=== PATIENT | male | born 1955 | race Caucasian/White ===

== ENCOUNTER 2020-07-18 06:00 | Outpatient (REF) | payer BC, SELFPAY ==
[2020-07-18 11:26] LABS: MANUAL DIFF FLAG NO
[2020-07-18 11:43] LABS: Basophils Absolute Auto 0.1 X10*3/uL (0.0-0.2); Basophils Percent Auto 1.3 % (0-2); Eosinophils Absolute Auto 0.4 X10*3/uL (0.0-0.4); Eosinophils Percent Auto 6.9 % (0-4); Hematocrit 42.5 % (42-52); Hemoglobin 13.7 g/dl (14.0-18.0); Imm Gran Abs Auto 0.03 X10*3/uL (0.00-0.03); Imm Gran Pct Auto 0.5 % (0.0-0.4); Lymphocytes Absolute Auto 1.3 X10*3/uL (1.2-4.9); Lymphocytes Percent Auto 24.1 % (20-40); Mean Corpuscular HGB Conc 32.2 g/dl (31.0-36.0); Mean Corpuscular Volume 93.2 fL (80-98); Mean Platelet Volume 10.4 fL (9.4-12.4); Monocytes Absolute Auto 0.7 X10*3/uL (0.1-1.2); Monocytes Percent Auto 11.9 % (2-11); Neutrophils Percent Auto 55.3 % (45-73); Platelet Count 204 X10*3/uL (160-400); Red Blood Count 4.56 X10*6/uL (4.60-5.80); Red Cell Distribution Width 13.1 % (11.0-16.0); White Blood Count 5.5 X10*3/uL (4.8-10.8)
[2020-07-18 12:10] LABS: Alanine Aminotransferase 18 U/L (0-40); Albumin Level 4.1 g/dL (3.5-5.0); Alkaline Phosphatase 58 U/L (39-117); Anion Gap 11 (12-20); Aspartate Amino Transferase 19 U/L (5-37); Bilirubin Total 0.8 mg/dL (0.0-1.0); Blood Urea Nitrogen 19 mg/dL (9-16); Calcium 8.9 mg/dL (8.4-10.2); Carbon Dioxide 29 mmol/L (22-29); Chloride 105 mmol/L (96-108); Cholesterol 208 mg/dL; Estimated Glomerular Filt Rate > 60; Glucose Random 96 mg/dL (60-115); HDL Cholesterol 57 mg/dL; LDL Cholesterol Calculated 136 mg/dl; Sodium 141 mmol/L (135-145); Total Protein 6.4 g/dL (6.5-8.0); Triglycerides 77 mg/dL
[2020-07-18 12:18] LABS: Free T4 (Free Thyroxine) 0.92 ng/dL (0.71-1.85); Prostate Specific Antigen Scr 0.68 ng/mL (<0.05-4.0); Thyroid Stimulating Hormone 3.09 uIU/mL (0.32-4.0)
[2020-07-18 12:31] LABS: Folate 18.1 ng/mL (> or = 4.0); Vitamin B12 509 pg/mL (200-900)
== END 2020-07-18 06:01 | disposition home or self-care (01) ==
LOC: HO.HMGCLDS 06:00
PROVIDERS: PCP Internal Medicine; Visit Provider Internal Medicine
DX: Z12.5 Encounter for screening for malignant neoplasm of prostate (principal); E78.00 Pure hypercholesterolemia, unspecified
CPT/HCPCS: 36415; 80053; 80061; 82607; 82746; 84153; 84439; 84443; 85025

== ENCOUNTER → 2022-03-26 14:19 | Outpatient (BNVA) | payer BC, SELFPAY | PROVIDERS: PCP Internal Medicine; Visit Provider Nurse Practitioner Family | DX: Z01.818 Encounter for other preprocedural examination (principal) ==

== ENCOUNTER 2022-04-30 08:49 | Outpatient (REF) | payer BC, SELFPAY ==
[2022-04-30 10:58] LABS: MANUAL DIFF FLAG NO
[2022-04-30 11:07] LABS: Basophils Absolute Auto 0.1 X10*3/uL (0.0-0.2); Basophils Percent Auto 0.9 % (0-2); Eosinophils Absolute Auto 0.4 X10*3/uL (0.0-0.4); Eosinophils Percent Auto 4.6 % (0-4); Hematocrit 43.9 % (42.0-52.0); Hemoglobin 14.5 g/dl (14.0-18.0); Imm Gran Abs Auto 0.09 X10*3/uL (0.00-0.03); Imm Gran Pct Auto 1.2 % (0.0-0.4); Lymphocytes Absolute Auto 1.7 X10*3/uL (1.2-4.9); Lymphocytes Percent Auto 22.5 % (20-40); Mean Corpuscular Hemoglobin 30.6 pg (27.0-33.0); Mean Corpuscular Volume 92.6 fL (80.0-98.0); Mean Platelet Volume 9.9 fL (9.4-12.4); Monocytes Absolute Auto 0.8 X10*3/uL (0.1-1.2); Monocytes Percent Auto 10.6 % (2-11); Neutrophils Absolute Auto 4.6 x10*3/uL (2.0-8.3); Neutrophils Percent Auto 60.2 % (45-73); Platelet Count 227 X10*3/uL (160-400); Red Blood Count 4.74 X10*6/uL (4.60-5.80); Red Cell Distribution Width 12.9 % (11.0-16.0); Retic HGB Equivalent 36.4 pg (30.0-35.0); Reticulocyte Percent 0.8 % (0.5-1.8); Reticulocytes Absolute 0.037 X10*6/uL (0.026-0.095); White Blood Count 7.6 X10*3/uL (4.8-10.8)
[2022-04-30 11:31] LABS: Alanine Aminotransferase 28 U/L (0-40); Alkaline Phosphatase 46 U/L (39-117); Anion Gap 13 (12-20); Aspartate Amino Transferase 23 U/L (5-37); Bilirubin Total 0.9 mg/dL (0.0-1.0); Blood Urea Nitrogen 19 mg/dL (9-16); Calcium 9.1 mg/dL (8.4-10.2); Carbon Dioxide 24 mmol/L (22-29); Chloride 107 mmol/L (96-108); Cholesterol 254 mg/dL; Estimated Glomerular Filt Rate > 60; Glucose Random 93 mg/dL (60-115); HDL Cholesterol 63 mg/dL; Iron 111 mcg/dL (45-160); LDL Cholesterol Calculated 175 mg/dl; Percent Iron Saturation 41 % (15-50); Potassium 4.2 mmol/L (3.3-5.1); Sodium 140 mmol/L (135-145); Total Iron Binding Capacity 269 mcg/dL (228-428); Total Protein 6.5 g/dL (6.5-8.0); Triglycerides 82 mg/dL; Unsaturated Iron Binding 158 ug/dL
[2022-04-30 11:49] LABS: Ferritin 500 ng/mL (20-250); Folate 14.7 ng/mL (> or = 4.0); Free T4 (Free Thyroxine) 0.97 ng/dL (0.71-1.85); Prostate Specific Antigen Scr 1.06 ng/mL (<0.05-4.0); Thyroid Stimulating Hormone 2.55 uIU/mL (0.32-4.0); Vitamin B12 2000 pg/mL (200-900)
== END 2022-04-30 08:50 | disposition home or self-care (01) ==
LOC: HO.HMGCLDS 08:49
PROVIDERS: PCP Internal Medicine; Visit Provider Internal Medicine
DX: Z12.5 Encounter for screening for malignant neoplasm of prostate (principal); E78.00 Pure hypercholesterolemia, unspecified
CPT/HCPCS: 36415; 80053; 80061; 82607; 82728; 82746; 83540; 84153; 84439; 84443; 85025; 85045

== ENCOUNTER 2023-01-07 09:24 | Day surgery (SDC) | payer BC, SELFPAY ==
[2023-01-03 12:16] VITALS: BMI 30.2
--- NOTE | 2023-01-07 10:45 | MHC.SHP ---
Pre-Procedural Eval Section A Date of Service: 01/07/23 The patient is an INPATIENT: No The History & Physical has been completed within 30 days and I have reviewed it.: No Section B Chief Complaint: colon cancer screening Relevant Family History (Specify if Yes): No Relevant Social History: None Present Medications: see Short Stay Collaborative assessment Medical History: Significant History (Hypercholesterolemia Uveitis) History of Previous Operations: Relevant previous surgery/procedure and date(s) (History of appendectomy History of cataract surgery History of eye surgery) Allergies: Allergies Allergy/AdvReac Type Severity Reaction Status Date / Time watermelon Allergy Severe ANAPHYLAXIS Verified 04/30/22 13:39 bee pollen [BEE STINGS] Allergy Unknown ANAPHYLAXIS Verified 04/30/22 13:39 Review of Systems Sugical H&P ROS: Negative: Constitution, Cardiovascular, Respiratory and Gastrointestinal Exam Surgical H&P Exam: Normal: Heart, Normal: Lungs, Normal: Extremities and Normal: Abdomen Plan Diagnosis/Plan: Unchanged I have reviewed the history and physical and performed a pertinent physical examination on my patient. No changes have occurred unless specified. Time Spent With Patient Time: Total time managing care of this patient today ____ minutes.
--- NOTE | 2023-01-07 11:25 | P.CONAN_ITS ---
HPI - Anesthesia Eval Consult details Narrative: for screening [facility] Active Problems Active Problems: All Active Problems (Updated 04/30/22 @ 14:03 by Prieto Manning MD) Annual physical exam (Acute) Eczema (Acute) Colon cancer screening (Acute) Obesity (BMI 30.0-34.9) (Acute) Maxillary sinusitis (Acute) Anemia (Acute) Overweight (BMI 25.0-29.9) (Acute) Uveitis (Acute) Hypercholesterolemia (Acute) Past Medical History Medical History Uveitis Hypercholesterolemia Family History Family History Father No problems noted. Mother No problems noted. Brother Prostate cancer Family history of problems with anesthesia: No Surgical History Surgical History History of eye surgery History of cataract surgery History of appendectomy History of Problems with Anesthesia: No Social History Social History Housing: House Alcohol intake: current Alcohol intake frequency: a few times a month Patient Tobacco Use Status: Never used Tobacco e-Cigarette/Vaping Use: Never Used Second Hand Smoke Exposure: No Advance Directives: No Advance Directives Information Provided: Yes Current occupational status: retired Cognitive needs: No Hearing needs: No Vision needs: Yes Meds Allergies Allergy/AdvReac Type Severity Reaction Status Date / Time watermelon Allergy Severe ANAPHYLAXIS Verified 04/30/22 13:39 bee pollen [BEE STINGS] Allergy Unknown ANAPHYLAXIS Verified 04/30/22 13:39 Home Medications Medication Instructions Recorded Confirmed Last Taken Type docusate sodium 100 mg capsule 100 mg PO DAILY 07/18/20 01/03/23 Unknown History dorzolamide 22.3 mg-timolol 6.8 1 drp ophthalmic (eye) BID 07/18/20 01/03/23 Unknown History mg/mL eye drops qyfbysfn-gp-rqvtd 300 mcg-K 60 1 tab PO DAILY 07/18/20 01/03/23 Unknown History mcg-lycop 600 mcg-lutein 300 mcg tablet (Centrum Silver Men) prednisolone acetate 1 % eye 1 drp ophthalmic (eye) BID 07/18/20 01/03/23 Unk nown History drops,suspension timolol maleate 0.5 % eye drops 1 drp ophthalmic (eye) DAILY 07/18/20 01/03/23 Unknown History vit C,E,zinc,copper-egdar4u 250 1 cap PO DAILY 07/18/20 01/03/23 Unknown History mg-lutein 5 mg-zeaxanthin 1 mg capsule (Ocuvite Adult 50 Plus) Exam Exam Date and Time: January 07, 2023 1125 Height,Weight and Vital Signs: Height 5 ft 6 in Weight 84.822 kg Airway Mallampati Class: II TM Dist: >3cm Neck ROM: Full Heart: rrr Lungs: cta Assessment and Plan Assessment Anesthesia Assessment: Anesthesia Plan Discussed and Chart Reviewed Final Anesthetic Review Family History of Problems with Anesthesia: No History of Problems with Anesthesia: No NPO: Yes ASA Class: II Final Preanesthetic Review: No Changes in Pt Med Stat, Meds/Allgs Chart Reviewed, Consent Obtained/Reviewed and Anes Risks/Benef Reviewed Patient Risk: Low Procedure Risk: Low Anesthetic Plan Anesthetic Plan: MAC: Disposition: Standard PACU
[2023-01-07 11:26] VITALS: BP 138/84; PULSE 55; RESP 18; TEMP 36.2; O2SAT 98
[2023-01-07] MEDS: Lactated Ringers 1,000 ML 100 ML IVCONT (11:31)
--- NOTE | 2023-01-07 11:33 | W.PM.OPN ---
Operative Note Operative Note Date of Service: 01/07/23 Narrative: COLONOSCOPY TILL CECUM WITH SNARE POLYPECTOMY, SUBMUCOSAL INJECTION AND HEMOCLIP PLACEMENT Pre-op diagnosis: Colon cancer screening Post-op diagnosis:?Colon polyps, diverticulosis, hemorrhoids Endoscopist:? Aylin Villanueva MD Anesthesia:?MAC Consent: Indications for the procedure and potential complications of bleeding, perforation, reaction to medications and missed diagnosis were discussed with the patient and informed consent was obtained. Instrument: Olympus PCF H 190 L variable stiffness pediatric colonoscope Monitoring: Vital signs and clinical assessment, intermittent blood pressure monitoring, continuous EKG monitoring, Pulse oximetry and Carbon Dioxide monitoring were done throughout the procedure. Please see anesthesia flowsheet. Colon withdrawl time was 20 minutes. Procedure: The patient was placed in the left lateral decubitis position and pre-procedure medications were administered. After a digital rectal examination of the ano-rectum, the video colonoscope was inserted into the rectum and advanced through the colon to the cecum. The colonoscope was slowly withdrawn in a retrograde panoramic fashion and the colon mucosa was carefully examined including a retroflexed view of the rectum. Findings and interventions are described below. Procedure Difficulty: LLQ pressure was applied to intubate the cecum Findings: Terminal Ileum: Not evaluated Cecum: A 2 cms flat polyp - raised with 5 cc of Eleview and removed with a stiff hot snare. Polypectomy site was closed with one hemoclip and marked by juliette ink Ascending Colon: A 12-15 mm sessile polyp in the mid AC - removed with a hot snare Transverse Colon: A 12-15 mm sessile polyp in the proximal transverse colon - removed with a hot snare. A 6-7 mm sessile polyp - removed with a cold snare Descending Colon: Normal Sigmoid Colon: Moderate diverticulosis Rectum: Normal Ano-rectum: Moderate internal hemorrhoids Colon preparation: Good Impression and Post Procedure Diagnosis: Colonoscopy Findings: Three medium sized and one small polyps removed Moderate diverticulosis seen in the sigmoid colon Moderate hemorrhoids on retroflexed exam. Plan: Await pathology results Patient has an appointment on 01/24/23 in the GI Clinic with Aylin Villanueva M.D. Repeat Colonoscopy interval based on path results - in 1 year if polyps are adenomatous (to check polypectomy site in the cecum) and 10 years if polyps are hyperplastic. Colon polyps and diverticulosis handouts were given in the discharge are
[2023-01-07 12:18] VITALS: BP 117/79; PULSE 69; RESP 16; TEMP 36.2; O2SAT 98
[2023-01-07 12:33] VITALS: BP 126/84; PULSE 60; RESP 16; TEMP 36.3; O2SAT 98
== END 2023-01-07 13:05 | disposition home or self-care (01) ==
PROVIDERS: PCP Internal Medicine; Visit Provider Internal Medicine Gastroenterology
PROC: 0DJD8ZZ Inspection of Lower Intestinal Tract, Via Natural or Artificial Opening Endoscopic (ICD-10-PCS; CPT 45378; principal; 2023-01-07 11:00)
DX: Z12.11 Encounter for screening for malignant neoplasm of colon (principal); D12.0 Benign neoplasm of cecum; D12.2 Benign neoplasm of ascending colon; D12.3 Benign neoplasm of transverse colon; K57.30 Diverticulosis of large intestine without perforation or abscess without bleeding; K64.8 Other hemorrhoids; E66.9 Obesity, unspecified; Z68.31 Body mass index [BMI] 31.0-31.9, adult; E78.00 Pure hypercholesterolemia, unspecified; D64.9 Anemia, unspecified; Z79.899 Other long term (current) drug therapy
CPT/HCPCS: 45385; 45381; 88305

== ENCOUNTER → 2023-01-07 09:24 | Outpatient (BNV) | payer BC, SELFPAY | PROVIDERS: PCP Internal Medicine; Visit Provider Internal Medicine Gastroenterology | DX: Z12.11 Encounter for screening for malignant neoplasm of colon (principal); K57.30 Diverticulosis of large intestine without perforation or abscess without bleeding; K64.8 Other hemorrhoids; D12.0 Benign neoplasm of cecum; D12.2 Benign neoplasm of ascending colon; D12.3 Benign neoplasm of transverse colon | CPT/HCPCS: 45380; 45381; 45385 ==

== ENCOUNTER 2023-08-02 08:30 | Outpatient (AMB) | payer BC, SELFPAY ==
--- NOTE | 2023-08-02 08:45 | A.OFFPC_ITS ---
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 Allergies watermelon Allergy (Severe, Verified 04/30/22 13:39) ANAPHYLAXIS bee pollen [BEE STINGS] Allergy (Unknown, Verified 04/30/22 13:39) ANAPHYLAXIS Medication List - Last Reconciled 08/02/23 by Prieto Manning MD C,E,zinc,copper 82-[id number]-emn 250-5-1 mg (Ocuvite Adult 50 Plus) 1 cap PO DAILY dorzolamide-timolol 22.3-6.8 mg/mL 1 drp ophthalmic (eye) BID lactobacillus combination no.4 (Probiotic) 3,000 mmu cells PO DAILY [id number]-zynU-oxlAs-Iay-[id number] 333-1.7 mg (Airborne (ascorbate sodium)) tabs PO prednisolone acetate 1% 1 drp ophthalmic (eye) BID timolol maleate 0.5% 1 drp ophthalmic (eye) DAILY Tobacco use date assessed: 08/02/23 Fall risk assessment: No Falls in past year Last assessed Fall Risk: 08/02/23 Dental Screening Dental Screen Date: 08/02/23 Did you have a dental visit in the last 12 months?: Yes Did you have a dental problem in the last 6 months where you did not have access to dental care?: No Was dental information given to patient?: Patient has dentist HPI Annual Exam HPI Details 67-year-old obese male with hypercholest erolemia last seen in 04/30/2022 and patient had a colonoscopy 12/28/2022. Polypectomy done showing tubular adenoma and sessile serrated polyps without dysplasia [facility] Medical History (Updated 08/02/23 @ 09:15 by Prieto Manning MD) Colon cancer screening Uveitis Hypercholesterolemia Surgical History History of eye surgery History of cataract surgery History of appendectomy Family History Father No problems noted. Mother No problems noted. Brother Prostate cancer Social History (Updated 08/02/23 @ 09:22 by Prieto Manning MD) Housing: House Alcohol intake: current Alcohol intake frequency: 0-2 drinks per day Comment: once a week 2 drinks Patient Tobacco Use Status: Never used Tobacco e-Cigarette/Vaping Use: Never Used Second Hand Smoke Exposure: No Current occupational status: retired Cognitive needs: No Hearing needs: No Vision needs: Yes Questionnaire Thrive Questionnaire Date Thrive assessed: 08/02/23 I am a: Patient What is your living situation today?: I have a steady place to live Within the past 12 months, did the food you bought not last and you didn't have the money to get more?: Never true Within the past 12 months, did you worry whether your food would run out before you got money to buy more?: Never true Do you have trouble paying for medicines?: No Do you have trouble getting transportation to medical appointments?: No Do you have trouble paying your heating and electricity bill?: No Do you have trouble taking care of your child, family member or friend?: No Do you have trouble with day-to-day activities such as bathing, preparing meals, shopping, managing finances, etc.?: No Are you currently unemployed and looking for a job?: No Are you interested in more education?: No Please select the resources that you would like help with: None Currently or been in a relationship where the following occur: no concerns reported THRIVE Score: 0 AUDIT C Alcohol Use Questionnaire (AUDIT-C) 1. How often do you have a drink containing alcohol?: 2-4 times a month 2. How many drinks containing alcohol do you have on a typical day when you are drinking?: 1 or 2 3. How often do you have six or more drinks on one occasion?: Never Total Score: 2 LONA-7 AMB Questionnaire LONA-7 Date LONA - 7 assessed: 08/02/23 Feeling nervous, anxious, or on edge: 0 = Not at all Not being able to stop or control worryin = Not at all Worrying too much about different things: 0 = Not at all Trouble relaxin = Not at all Being so restless that it is hard to sit still: 0 = Not at all Becoming easily annoyed or irritable: 0 = Not at all Feeling afraid as if something awful might happen: 0 = Not at all Total LONA-7 score (0-4 normal; 5-9 mild; 10-14 moderate; 15-21 severe): 0 Source: Developed by Drs. Romel Saxena, Ginger Wilcox, Vern Webster and colleagues, with an educational john from [employer]. LONA-7 Assessment Billing LONA-7 Assessment Tool: LONA-7 Assessment 04440 Review of Systems Const Denies poor appetite and Denies weakness Eyes Denies no additional complaints ENT Reports Normal hearing present, Denies dizziness, Denies nasal congestion, Denies tinnitus and Denies sore throat Card Denies chest pain, Denies syncope, Denies rapid heart rate and Denies dyspnea Resp Denies cough and Denies dyspnea GI Denies change in stool character, Reports constipation, Denies diarrhea, Denies nausea and Denies vomiting Denies dysuria and Denies urinary frequency Neuro Reports Normal hearing present, Denies confusion, Denies dizziness, Denies syncope and Denies weakness Psych Denies confusion Physical exam (Primary Care) Vital Signs: Last Vital Signs Pulse 57 08/02/23 08:46 BP 112/78 08/02/23 08:46 Pulse Ox 98 08/02/23 08:46 Oxygen Delivery Method Room Air 08/02/23 08:46 BMI result Body Mass Index 30.7 Tobacco/Smoking Status: Tobacco use Status Tobacco use date assessed 08/02/23 08/02/23 08:51 Patient Tobacco Use Status Never used Tobacco 08/02/23 08:51 e-Cigarette/Vaping Use Never Used 08/02/23 08:51 Thrive Assessment: Date of Thrive Assessment Date Thrive assessed 08/02/23 08/02/23 08:51 Currently or been in a relationship where the following occur: no concerns reported Const General: alert and awake; No confusion Orientation/consciousness: No confusion HENMT Head: Yes normocephalic Ears: external ears normal and TM's normal bilaterally Face and sinus: Yes normal facial exam Mouth: moist mucous membranes Throat: Yes tonsils normal Eyes Conjunctivae: conjunctivae normal Pupils: Equal, round and reactive pupils present and Pupil accommodation reflex normal Direct Ophthalmoscopy: normal light reflex Neck Neck: No lymphadenopathy Thyroid: Thyroid normal Chest Chest palpation & inspection: normal inspection of the chest Resp Effort & Inspection: normal respiratory effort and no audible wheezes Auscultation: clear to auscultation bilaterally, no crackles, no wheezes and lung sounds not diminished Cardio Rate: regular rate Rhythm: regular rhythm Peripheral pulses: radial pulses present and dorsalis pedis present GI Palpation (GI): no masses Auscultation: normal bowel sounds and normoactive bowel sounds Rectal Exam - Male: Yes deferred Skin General skin exam: no rashes or lesions noted Rashes: no rashes Neuro General: deep tendon reflexes 2+ bilaterally and No confusion Cranial nerves: Yes Equal, round and reactive pupils present, Yes Midline tongue present, Yes Normal hearing present and Yes Ability to bilaterally elevate shoulders present Cognition (Neuro): normal cognition Gait exam (Neuro): Normal gait present Motor exam (neuro): 5/5 motor strength present throughout Deep tendon reflexes (DTR's): Right brachioradialis reflex intensity grade: 2+, Left brachioradialis reflex intensity grade: 2+, Right patellar reflex intensity grade: 2+ and Left patellar reflex intensity grade: 2+ Extrem General: No edema Assessment and Plan Assessment & Plan (1) Annual physical exam: Code(s): Z00.00 - Encounter for general adult medical examination without abnormal findings (2) Tubular adenoma of colon: Comment: 2022 Code(s): D12.6 - Benign neoplasm of colon, unspecified Plan: Patient is reminded of the advise from the colonoscopy in 1 year (3) Obesity (BMI 30.0-34.9): Code(s): E66.9 - Obesity, unspecified Plan: Diet and exercise (4) Hypercholesterolemia: Code(s): E78.00 - Pure hypercholesterolemia, unspecified Plan: Avoid fried foods, chicken skin, eggs, butter margarine, pastries and meat. Be it pork or beef they have a lot of cholesterol LDL goal of less than 130 and triglyceride of less than 150. Orders: Orders Thyroid Stimulating Hormone Today E78.00 - Pure hypercholesterolemia, unspecified Lipid Panel Today E78.00 - Pure hypercholesterolemia, unspecified Vitamin B12 and Folate Today E78.00 - Pure hypercholesterolemia, unspecified Prostate Specific Antigen Scr Today E78.00 - Pure hypercholesterolemia, unspecified Ferritin Today E78.00 - Pure hypercholesterolemia, unspecified IRON PROFILE Today E78.00 - Pure hypercholesterolemia, unspecified Reticulocyte Count Today E78.00 - Pure hypercholesterolemia, unspecified Complete Blood Count Auto Diff Today E78.00 - Pure hypercholesterolemia, unspecified Comprehensive Met. Panel Today E78.00 - Pure hypercholesterolemia, unspecified Free T4 (Free Thyroxine) Today E78.00 - Pure hypercholesterolemia, unspecified Coding Level of Care Code Est Pt Prev Care >65y(83845) Diagnoses Annual physical exam Z00.00 Tubular adenoma of colon D12.6 Obesity (BMI 30.0-34.9) E66.9 Hypercholesterolemia E78.00 Additional Codes LONA-7 Assessment Billing - LONA-7 Assessment Tool: LONA-7 Assessment 29383 ([id number])
[2023-08-02 08:46] VITALS: BP 112/78; PULSE 57; O2SAT 98; BMI 30.7
== END 2023-08-02 09:43 | disposition home or self-care (01) ==
PROVIDERS: Visit Provider Internal Medicine
DX: Z00.00 Encounter for general adult medical examination without abnormal findings (principal); Z86.010 Personal history of colon polyps; E78.00 Pure hypercholesterolemia, unspecified
CPT/HCPCS: 99397

== ENCOUNTER 2023-10-04 08:57 | Outpatient (REF) | payer BC, SELFPAY ==
[2023-10-04 10:27] LABS: MANUAL DIFF FLAG NO
[2023-10-04 10:37] LABS: Basophils Absolute Auto 0.1 X10*3/uL (0.0-0.2); Basophils Percent Auto 1.2 % (0-2); Eosinophils Absolute Auto 0.3 X10*3/uL (0.0-0.4); Eosinophils Percent Auto 5.7 % (0-4); Hematocrit 44.4 % (42.0-52.0); Hemoglobin 14.9 g/dl (14.0-18.0); Imm Gran Abs Auto 0.05 X10*3/uL (0.00-0.03); Imm Gran Pct Auto 0.8 % (0.0-0.4); Immature Retic Fraction 9.1 % (2.3-13.4); Lymphocytes Absolute Auto 1.6 X10*3/uL (1.2-4.9); Mean Corpuscular HGB Conc 33.6 g/dl (31.0-36.0); Mean Corpuscular Hemoglobin 30.8 pg (27.0-33.0); Mean Corpuscular Volume 91.9 fL (80.0-98.0); Mean Platelet Volume 9.9 fL (9.4-12.4); Monocytes Absolute Auto 0.8 X10*3/uL (0.1-1.2); Monocytes Percent Auto 13.7 % (2-11); Neutrophils Absolute Auto 3.1 x10*3/uL (2.0-8.3); Neutrophils Percent Auto 51.6 % (45-73); Platelet Count 213 X10*3/uL (160-400); Red Blood Count 4.83 X10*6/uL (4.60-5.80); Retic HGB Equivalent 34.6 pg (30.0-35.0); Reticulocyte Percent 0.9 % (0.5-1.8); Reticulocytes Absolute 0.043 X10*6/uL (0.026-0.095); White Blood Count 5.9 X10*3/uL (4.8-10.8)
[2023-10-04 11:18] LABS: Alanine Aminotransferase 20 U/L (0-40); Albumin Level 4.2 g/dL (3.5-5.0); Alkaline Phosphatase 52 U/L (39-117); Anion Gap 11 (12-20); Aspartate Amino Transferase 20 U/L (5-37); Bilirubin Total 0.8 mg/dL (0.0-1.0); Blood Urea Nitrogen 16 mg/dL (9-16); Calcium 9.6 mg/dL (8.4-10.2); Carbon Dioxide 28 mmol/L (22-29); Chloride 106 mmol/L (96-108); Cholesterol 240 mg/dL (<200); Estimated Glomerular Filt Rate > 60; Glucose Random 100 mg/dL (60-115); HDL Cholesterol 63 mg/dL (>40); Iron 116 mcg/dL (45-160); LDL Cholesterol Calculated 159 mg/dL (<100); Percent Iron Saturation 41 % (15-50); Potassium 4.5 mmol/L (3.3-5.1); Sodium 140 mmol/L (135-145); Total Iron Binding Capacity 280 mcg/dL (228-428); Total Protein 6.8 g/dL (6.5-8.0); Triglycerides 92 mg/dL (<150); Unsaturated Iron Binding 164 ug/dL
[2023-10-04 11:40] LABS: Prostate Specific Antigen Scr 0.92 ng/mL (<0.05-4.0); Vitamin B12 1075 pg/mL (200-900)
[2023-10-04 11:47] LABS: Ferritin 517 ng/mL (20-250); Free T4 (Free Thyroxine) 0.89 ng/dL (0.71-1.85); Thyroid Stimulating Hormone 3.37 uIU/mL (0.32-4.0)
== END 2023-10-04 08:58 | disposition home or self-care (01) ==
LOC: HO.HMGCLDS 08:57
PROVIDERS: PCP Internal Medicine; Visit Provider Internal Medicine
DX: E78.00 Pure hypercholesterolemia, unspecified (principal); Z12.5 Encounter for screening for malignant neoplasm of prostate
CPT/HCPCS: 36415; 80053; 80061; 82607; 82728; 82746; 83540; 84153; 84439; 84443; 85025; 85045

== ENCOUNTER 2024-03-06 07:15 | Day surgery (SDC) | payer BC, SELFPAY ==
[2024-03-03 12:25] VITALS: BMI 30.7
--- NOTE | 2024-03-05 10:13 | HO.ANESPROP2 ---
HPI - Anesthesia Eval Consult details Narrative: 68yo M for Colonoscopy PMFSH Active Problems Active Problems: All Active Problems Tubular adenoma of colon (Acute) Annual physical exam (Acute) Eczema (Acute) Obesity (BMI 30.0-34.9) (Acute) Maxillary sinusitis (Acute) Anemia (Acute) Overweight (BMI 25.0-29.9) (Acute) Uveitis (Acute) Hypercholesterolemia (Acute) Past Medical History Medical History (Updated 08/02/23 @ 09:15 by Prieto Manning MD) Colon cancer screening Uveitis Hypercholesterolemia Family History Family History Father No problems noted. Mother No problems noted. Brother Prostate cancer Family history of problems with anesthesia: No Surgical History Surgical History (Updated 03/03/24 @ 12:26 by Herminia Humphrey RN) Hx of colonoscopy (01/07/23) History of eye surgery History of cataract surgery History of appendectomy History of Problems with Anesthesia: No Social History Social History (Updated 08/02/23 @ 09:22 by Prieto Manning MD) Housing: House Alcohol intake: current Alcohol intake frequency: 0-2 drinks per day Comment: once a week 2 drinks Patient Tobacco Use Status: Never used Tobacco e-Cigarette/Vaping Use: Never Used Second Hand Smoke Exposure: No Current occupational status: retired Cognitive needs: No Hearing needs: No Vision needs: Yes Meds Allergies Allergy/AdvReac Type Severity Reaction Status Date / Time watermelon Allergy Severe ANAPHYLAXIS Verified 04/30/22 13:39 bee pollen [BEE STINGS] Allergy Unknown ANAPHYLAXIS Verified 04/30/22 13:39 Home Medications ?Medication ?Instructions ?Recorded ?Confirmed ?Last Taken ?Type dorzolamide 22.3 mg-timolol 6.8 1 drp ophthalmic (eye) BID 07/18/20 08/02/23 Unknown History mg/mL eye drops prednisolone acetate 1 % eye 1 drp ophthalmic (eye) BID 07/18/20 08/02/23 Unknown History drops,suspension timolol maleate 0.5 % eye drops 1 drp ophthalmic (eye) DAILY 07/18/20 08/02/23 Unknown History vit C,E,zinc,copper-epwpr2f 250 1 cap PO DAILY 07/18/20 08/02/23 Unknown History mg-lutein 5 mg-zeaxanthin 1 mg capsule (Ocuvite Adult 50 Plus) lactobacillus combination no.4 3 3,000 mmu cells PO DAILY 08/02/23 08/02/23 Unknown History billion cell capsule (Probiotic) mv-min-vit C-ascorb tab PO 08/02/23 08/02/23 Unknown History Yo-Sgv-Bws-herb #124 333 mg-1.7 mg chewable tablet (Airborne (ascorbate sodium)) Exam Height,Weight and Vital Signs: Height 5 ft 6 in Weight 86.183 kg Assessment and Plan Assessment Anesthesia Assessment: Chart Reviewed Final Anesthetic Review Family History of Problems with Anesthesia: No History of Problems with Anesthesia: No
[2024-03-06 07:23] VITALS: BMI 29.7
[2024-03-06 07:30] VITALS: BP 116/73; PULSE 70; RESP 15; TEMP 36.7; O2SAT 97
[2024-03-06] MEDS: Lactated Ringers 1,000 ML 100 ML IVCONT (07:43)
--- NOTE | 2024-03-06 07:43 | MHC.SHP ---
Pre-Procedural Eval Section A - 24 Hr Update-Section A only Date of Service: 03/06/24 The patient is an INPATIENT: No The patient has been examined within 24 hours of the surgical procedure. The History & Physical has been completed within 30 days and I have reviewed it.: No Section B - Complete if H&P > 30 days Chief Complaint: Surveillance for colon polyps Relevant Family History (Specify if Yes): No Relevant Social History: None Present Medications: see Short Stay Collaborative assessment Medical History: Significant History (Hypercholesterolemia Uveitis) History of Previous Operations: Relevant previous surgery/procedure and date(s) (History of appendectomy History of cataract surgery History of eye surgery) Allergies: Allergies Allergy/AdvReac Type Severity Reaction Status Date / Time watermelon Allergy Severe ANAPHYLAXIS Verified 03/06/24 07:23 bee pollen [BEE STINGS] Allergy Unknown ANAPHYLAXIS Verified 03/06/24 07:23 Review of Systems Sugical H&P ROS: Negative: Constitution, Cardiovascular, Respiratory and Gastrointestinal Exam Surgical H&P Exam: Normal: Heart, Normal: Lungs, Normal: Extremities and Normal: Abdomen Plan Diagnosis/Plan: Unchanged I have reviewed the history and physical and performed a pertinent physical examination on my patient. No changes have occurred unless specified. Time Spent With Patient Time: Total time managing care of this patient today ____ minutes.
--- NOTE | 2024-03-06 08:28 | HO.ANESPROP2 ---
[facility] Active Problems Active Problems: All Active Problems Tubular adenoma of colon (Acute) Annual physical exam (Acute) Eczema (Acute) Obesity (BMI 30.0-34.9) (Acute) Maxillary sinusitis (Acute) Anemia (Acute) Overweight (BMI 25.0-29.9) (Acute) Uveitis (Acute) Hypercholesterolemia (Acute) Past Medical History Medical History Colon cancer screening Uveitis Hypercholesterolemia Functional capacity: independent ambulation Family History Family History Father No problems noted. Mother No problems noted. Brother Prostate cancer Family history of problems with anesthesia: No Surgical History Surgical History Hx of colonoscopy (01/07/23) History of eye surgery History of cataract surgery History of appendectomy History of Problems with Anesthesia: No Social History Social History Housing: House Alcohol intake: current Alcohol intake frequency: 0-2 drinks per day Comment: once a week 2 drinks Patient Tobacco Use Status: Never used Tobacco e-Cigarette/Vaping Use: Never Used Second Hand Smoke Exposure: No Use of substances other than those prescribed or required for medical reasons: Yes Substance Use Type Other:: edibles occasionally Are you DNR?: No Advance Directives: No Advance Directives Information Provided: Yes Current occupational status: retired Cognitive needs: No Hearing needs: No Vision needs: Yes Meds Allergies Allergy/AdvReac Type Severity Reaction Status Date / Time watermelon Allergy Severe ANAPHYLAXIS Verified 03/06/24 07:23 bee pollen [BEE STINGS] Allergy Unknown ANAPHYLAXIS Verified 03/06/24 07:23 Active Medications: Current Medications Lactated Ringer's (Lr) 1,000 mls @ 100 mls/hr IVCONT .Q10H MÓNICA Last Admin: 03/06/24 07:43 Dose: 100 mls/hr Home Medications ?Medication ?Instructions ?Recorded ?Confirmed ?Last Taken ?Type dorzolamide 22.3 mg-timolol 6.8 1 drp ophthalmic (eye) BID 07/18/20 08/02/23 Unknown History mg/mL eye drops prednisolone acetate 1 % eye 1 drp ophthalmic (eye) BID 07/18/20 08/02/23 Unknown History drops,suspension timolol maleate 0.5 % eye drops 1 drp ophthalmic (eye) DAILY 07/18/20 08/02/23 Unknown History vit C,E,zinc,copper-scxji6q 250 1 cap PO DAILY 07/18/20 08/02/23 Unknown History mg-lutein 5 mg-zeaxanthin 1 mg capsule (Ocuvite Adult 50 Plus) lactobacillus combination no.4 3 3,000 mmu cells PO DAILY 08/02/23 08/02/23 Unknown History billion cell capsule (Probiotic) mv-min-vit C-ascorb tab PO 08/02/23 08/02/23 Unknown History Wy-Qxo-Viu-herb #124 333 mg-1.7 mg chewable tablet (Airborne (ascorbate sodium)) brimonidine 0.2 % eye drops 1 drp ophthalmic (eye) BID 03/06/24 03/06/24 Unknown History Exam Height,Weight and Vital Signs: Height 5 ft 6 in Weight 83.461 kg Last Vital Signs Temp 98.0 F 03/06/24 07:30 Pulse 70 03/06/24 07:30 Resp 15 03/06/24 07:30 BP 116/73 03/06/24 07:30 Pulse Ox 97 03/06/24 07:30 O2 Del Method Room Air 03/06/24 07:30 Airway Mallampati Class: III TM Dist: >3cm Neck ROM: Full Heart: RRR Lungs: CTA Assessment and Plan Assessment Anesthesia Assessment: Anesthesia Plan Discussed and Chart Reviewed Final Anesthetic Review Family History of Problems with Anesthesia: No History of Problems with Anesthesia: No NPO: Yes ASA Class: II Final Preanesthetic Review: Meds/Allgs Chart Reviewed, Consent Obtained/Reviewed and Anes Risks/Benef Reviewed Patient Risk: Low Procedure Risk: Low Anesthetic Plan Anesthetic Plan: MAC: Disposition: Standard PACU
--- NOTE | 2024-03-06 09:18 | HO.OPN-COLON ---
Colonoscopy Operative Note Operative Note Date of Service: 03/06/24 Narrative: COLONOSCOPY TILL CECUM WITH SNARE POLYPECTOMY AND HEMOCLIP PLACEMENT Pre-op diagnosis: Surveillance for colon polyps. Post-op diagnosis:? Colon polyp, Diverticulosis, hemorrhoids Endoscopist:? Aylin Villanueva MD Anesthesia:?MAC Consent: Indications for the procedure and potential complications of bleeding, perforation, reaction to medications and missed diagnosis were discussed with the patient and informed consent was obtained. Instrument: Olympus CF H 190 L variable stiffness adult colonoscope Monitoring: Vital signs and clinical assessment, intermittent blood pressure monitoring, continuous EKG monitoring, Pulse oximetry and Carbon Dioxide monitoring were done throughout the procedure. Please see anesthesia flowsheet. Colon withdrawl time was 23 minutes. Procedure: The patient was placed in the left lateral decubitis position and pre-procedure medications were administered. After a digital rectal examination of the ano-rectum, the video colonoscope was inserted into the rectum and advanced through the colon to the cecum. The colonoscope was slowly withdrawn in a retrograde panoramic fashion and the colon mucosa was carefully examined including a retroflexed view of the rectum. Findings and interventions are described below. Procedure Difficulty: without difficulty Findings: Terminal Ileum: Not evaluated Cecum: A 3-4 mm polyp at the edge of past polypectomy site - removed with a cold snare and cold bx Ascending Colon: Normal Transverse Colon: A 10-12 mm sessile polyp in the proximal TC - removed with a hot snare. Polypectomy site was closed with 1 hemoclip. Descending Colon: Normal Sigmoid Colon: Moderate diverticulosis Rectum: Normal Ano-rectum: Moderate internal hemorrhoids Colon preparation: Good after copious irrigation. [place] Bowel Preparation Scale Right colon; 2 Transverse colon: 2 Left colon; 2 (0 = Unprepared colon segment with mucosa not seen due to solid stool that cannot be cleared. 1 = Portion of mucosa of the colon segment seen, but other areas of the colon segment not well seen due to staining, residual stool and/or opaque liquid. 2 = Minor amount of residual staining, small fragments of stool and/or opaque liquid, but mucosa of colon segment seen well. 3 = Entire mucosa of colon segment seen well with no residual staining, small fragments of stool or opaque liquid) Impression and Post Procedure Diagnosis: Colonoscopy Findings: One medium sized polyp was removed Moderate diverticulosis seen in the sigmoid colon Moderate hemorrhoids on retroflexed exam. Plan: Pt has a FU appointment on 03/19/[address] Villanueva Repeat Colonoscopy in 3-5 years if polyps are adenomatous and due to a history of adenomatous colon polyps. Above findings were reviewed with the patient and relevant handouts were given and the discharge area.
[2024-03-06 09:21] VITALS: BP 91/56; PULSE 63; RESP 15; TEMP 36.4; O2SAT 95
[2024-03-06 09:36] VITALS: BP 106/71; PULSE 63; RESP 17; O2SAT 98
--- NOTE | 2024-03-06 10:06 | HO.POSTANES ---
Post Anesthesia Evaluation Post Anesthesia Evaluation Date of Service: 03/06/24 Vital Signs: Vital Signs Temp Pulse Resp BP Pulse Ox O2 Del Method 03/06/24 09:36 63 17 106/71 98 Room Air 03/06/24 09:21 97.6 F 63 15 91/56 L 95 Room Air 03/06/24 07:30 98.0 F 70 15 116/73 97 Room Air Anesthesia: Monitored Mental Status: Awake Pain Control: Satisfactory Nausea/Vomiting: None Hydration: Adequate Anesthesia-Related Issues: No Anes. Related Issues
--- NOTE | 2024-03-06 10:11 | PC.NURSE ---
Quinn DENISE reviewed all discharge instructions with patient and family member.
== END 2024-03-06 10:13 | disposition home or self-care (01) ==
PROVIDERS: PCP Internal Medicine; Visit Provider Internal Medicine Gastroenterology
PROC: 0DJD8ZZ Inspection of Lower Intestinal Tract, Via Natural or Artificial Opening Endoscopic (ICD-10-PCS; CPT 45378; principal; 2024-03-06 08:30)
DX: Z12.11 Encounter for screening for malignant neoplasm of colon (principal); K63.5 Polyp of colon; K57.30 Diverticulosis of large intestine without perforation or abscess without bleeding; K64.8 Other hemorrhoids; E78.00 Pure hypercholesterolemia, unspecified; Z79.899 Other long term (current) drug therapy
CPT/HCPCS: 45385; 45380; 88305; J2003; J2704

== ENCOUNTER → 2024-03-06 07:15 | Outpatient (BNV) | payer BC, SELFPAY | PROVIDERS: PCP Internal Medicine; Visit Provider Internal Medicine Gastroenterology | DX: Z12.11 Encounter for screening for malignant neoplasm of colon (principal); Z86.0100 Personal history of colon polyps, unspecified; D12.3 Benign neoplasm of transverse colon; K57.30 Diverticulosis of large intestine without perforation or abscess without bleeding | CPT/HCPCS: 45385 ==

== ENCOUNTER 2024-10-17 10:13 | Outpatient (REF) | payer BC, SELFPAY ==
[2024-10-17 12:06] LABS: Binax Internal Control QC Valid; Binax Now Covid-19 Ag Negative (Negative); Binax Performed by: PAULP
[2024-10-17 12:07] LABS: Binax Lot number: 869104
== END 2024-10-17 10:14 | disposition home or self-care (01) ==
LOC: HO.HMGCLDS 10:13
PROVIDERS: PCP Internal Medicine; Visit Provider Physician Assistant Medical
DX: J01.80 Other acute sinusitis (principal); B97.89 Other viral agents as the cause of diseases classified elsewhere; Z20.822 Contact with and (suspected) exposure to COVID-19; J06.9 Acute upper respiratory infection, unspecified
CPT/HCPCS: 87811

== ENCOUNTER 2024-10-17 10:13 | Outpatient (AMB) | payer BC, SELFPAY ==
--- OUTSIDE RECORDS SUMMARY | 2024-10-17 10:14 | XMS_ITS ---
Author Name [facility] Organization Unknown Encounters Encounter Type Encounter Reason Primary Diagnosis Location Date [facility]ulatory [facility] 11/27/2023
--- NOTE | 2024-10-17 10:46 | AM.OFFWIN_ITS ---
Intake Vital Signs 10/17/24 10:58 Height 5 ft 6 in Weight 184 lb BMI 29.7 BP 126/74 Blood Pressure Location Lt brachial Position Sitting Respiration 18 Pulse 72 Pulse Source Pulse Oximeter Temp 97.9 F Temp Source Oral Pulse Oximetry (%) 98 Oxygen Delivery Method Room Air Intake Visit Reasons: EP-Sinus Infection? Intake Note: Pt is here today for a walk in visit. Pt c/o L side sins pressure congestion since . Patient Tobacco Use Status: Never used Tobacco Allergies watermelon Allergy (Severe, Verified 11/12/24 09:09) ANAPHYLAXIS bee pollen (BEE STINGS) Allergy (Unknown, Verified 11/12/24 09:09) ANAPHYLAXIS HPI EP-Sinus Infection? HPI Details Patient is a 69-year-old male who comes to the walk-in clinic complaining ofy for a walk in visit. Pt c/o L side sins pressure congestion since PFSH Medical History Colon cancer screening Uveitis Hypercholesterolemia Surgical History Hx of colonoscopy (01/07/23) History of eye surgery History of cataract surgery History of appendectomy Family History Father No problems noted. Mother No problems noted. Brother Prostate cancer Social History Housing: House Alcohol intake: current Alcohol intake frequency: 0-2 drinks per day Comment: once a week 2 drinks Patient Tobacco Use Status: Never used Tobacco Tobacco use type: Cigarette e-Cigarette/Vaping Use: Never Used Second Hand Smoke Exposure: No Current occupational status: retired Cognitive needs: No Hearing needs: No Vision needs: Yes Review of Systems Const All systems reviewed & are unremarkable except as noted in HPI and below Physical Exam Vital Signs: Last Vital Signs Temp 97.9 F 10/17/24 10:58 Pulse 72 10/17/24 10:58 Resp 18 10/17/24 10:58 BP 126/74 10/17/24 10:58 Pulse Ox 98 10/17/24 10:58 Oxygen Delivery Method Room Air 10/17/24 10:58 BMI result Body Mass Index 29.7 Const General: cooperative, healthy appearing, comfortable, no acute distress, alert, awake, Physically active and well groomed; No anxious, diaphoretic, ill appearing, intoxicated appearing, poor hygiene or tired appearing Nutritional Appearance: average body habitus Orientation/consciousness: oriented to person Limitations: no limitations HEENT Head: Yes normal to inspection, Yes normocephalic and Yes atraumatic Ears: hearing grossly normal bilaterally, external ears normal and unable to visualize TM bilaterally General nose exam: Normal external nose present, nares abnormal, Normal septum present, Abnormal mucous membranes and turbinates present and Nasal discharge present Face and sinus: Yes face symmetric Mouth: Normal oral and palatal mucosa present, lip normal and tongue normal Throat: Yes uvula midline, Yes abnormal tonsil (mildly erythematous bilaterally), No peritonsillar mass, No uvular edema and No cobblestoning Eyes General: appearance normal, both eyes and all related structures Neck Neck: Yes normal visual inspection, Yes full ROM, Yes no lymphadenopathy, Yes tr achea midline, Yes supple and No anterior neck swelling Resp Effort & Inspection: normal respiratory effort, able to speak in complete sentences, no audible wheezes, no cough, no grunting, not labored, no nasal flaring, no retractions and symmetric chest movement Auscultation: clear to auscultation bilaterally, no crackles, no rales, no rhonchi, no wheezes, lung sounds not diminished and No rub present Cardio Rate: regular rate Skin Other: Good color, warm and dry Neuro General: oriented to person Psych Appearance: grossly normal Mental Status: mental status grossly normal Speech and movement: Normal speech and movement present Affect: normal affect Attitude: cooperative Thought process: Normal thought process present Insight: Good insight present (Psych) Judgement: Good judgement present (Psych) Assessment & Plan Assessment & Plan (1) Sinusitis, acute ethmoidal: Code(s): J01.20 - Acute ethmoidal sinusitis, unspecified Qualifiers: Recurrence: recurrent Qualified Code(s): J01.21 - Acute recurrent ethmoidal sinusitis Plan Patient with new onset acute sinusitis, left-sided, pending flu COVID and RSV for underlying etiology. Has clear drainage to the left naris and posterior oropharynx, as well as the left eye. Unable to visualize TMs due to cerumen impactions. No palpable anterior cervical lymph nodes, fever or tachycardia suggestive of strep throat. I advised he treat with heat massage and adequate fluid intake, and can take guaifenesin if mucus production becomes thick. I wrote him for a short course of prednisone as this has been known to help him in the past, as he says this gets it yearly and the sinus pressure is significant. If symptoms persist or worsen, he can start azithromycin course as requested, but advised that he trial treating it with anti-inflammatories and conservative measures first. He knows to follow up if symptoms continue to persist or worsen, or go to the emergency department with worrisome symptoms. Orders: Orders [facility] Covid-19 Ag 10/17/24 Z20.822 - Contact with and (suspected) exposure to COVID-19 SARS-CoV2/FLU/RSV 10/17/24 J06.9 - Acute upper respiratory infection, unspecified Medications: New prednisone 40 mg (2 x 20 mg) PO DAILY 10 tabs 0RF 5 days azithromycin For 250 mg dose pack: take 500 mg today (day 1), then 250 mg for 4 days (days 2-5) PO 6 tabs 0RF Coding Level of Care Code Est Pt Level 4 (73105) Diagnoses Acute recurrent ethmoidal sinusitis J01.21 Recurrence: recurrent
[2024-10-17 10:58] VITALS: BP 126/74; PULSE 72; RESP 18; TEMP 36.6; O2SAT 98; BMI 29.7
== END 2024-10-17 11:53 | disposition home or self-care (01) ==
LOC: HO.HMCWIC 10:13
PROVIDERS: PCP Internal Medicine; Visit Provider Physician Assistant Medical
DX: J01.21 Acute recurrent ethmoidal sinusitis (principal)

== ENCOUNTER 2024-10-17 11:47 | Outpatient (REF) | payer BC, SELFPAY ==
[2024-10-17 14:47] LABS: Resp Syncy Virus RNA Qual PCR NEGATIVE (Negative); SARS COV2 PCR INHOUSE NEGATIVE (Negative)
== END 2024-10-17 11:48 | disposition home or self-care (01) ==
LOC: HO.LAB 11:47
PROVIDERS: Visit Provider Physician Assistant Medical
DX: J06.9 Acute upper respiratory infection, unspecified (principal); Z20.822 Contact with and (suspected) exposure to COVID-19
CPT/HCPCS: 87637

== ENCOUNTER 2024-10-23 07:08 | Outpatient (AMB) | payer BC, SELFPAY ==
[2024-10-23 07:32] VITALS: BP 116/60; PULSE 77; TEMP 36.7; O2SAT 97; BMI 31.0
--- NOTE | 2024-10-23 07:32 | AM.OFFWIN_ITS ---
Intake Vital Signs 10/23/24 07:32 Height 5 ft 6 in Weight 192 lb 4 oz BMI 31.0 BP 116/60 Blood Pressure Location Rt brachial Position Sitting Pulse 77 Pulse Source Pulse Oximeter Temp 98.1 F Temp Source Oral Pulse Oximetry (%) 97 Oxygen Delivery Method Room Air Intake Visit Reasons: EP sinus infection still after abx, no relief Patient Tobacco Use Status: Never used Tobacco Safety Clothing And Equipment Developer Required: No Allergies watermelon Allergy (Severe, Verified 10/23/24 07:36) ANAPHYLAXIS bee pollen (BEE STINGS) Allergy (Unknown, Verified 10/23/24 07:36) ANAPHYLAXIS Do you need a note to return to daycare/school/sports/work: No HPI HPI Comments History of Present Illness Details History - The patient is a 69-year-old male pres enting with persistent symptoms of sinusitis. - Previously treated with azithromycin a nd prednisone 6 days ago, symptoms initially improved but worsened post-treatment. - Symptoms include bilateral nasal conge stion, insomnia, and headaches. - No history of shortness of breath or s ignificant fatigue, occasional sweating noted. Physical Exam General: Cooperative, healthy appearing, comfortable and no acute distress Orientation/consciousness: Patient oriented x3 Limitations: No limitations Head: Normal to inspection Ears: Hearing grossly normal bilaterally, external ears normal and TM's normal bilaterally Nose: Normal external nose present, Normal nares present and No nasal discharge present Face and sinus: Normal facial exam and Yes sinuses slightly tender Mouth: Normal oral and palatal mucosa present and moist mucous membranes Throat: Yes tonsils normal, Yes uvula midline. Posterior oropharynx erythema, no exudates Eyes: Appearance normal, both eyes and all related structures Neck: Normal visual inspection, full ROM Respiratory: Normal respiratory effort, able to speak in complete sentences, not actively coughing, no respiratory distress, not tachypneic, no tripod positioning and no use of accessory muscles Skin: No rashes or lesions noted Neuro: Patient oriented x3 Extremities: Normal to inspection and Yes no clubbing, cyanosis or edema PFSH Medical History Colon cancer screening Uveitis Hypercholesterolemia Surgical History Hx of colonoscopy (01/07/23) History of eye surgery History of cataract surgery History of appendectomy Family History Father No problems noted. Mother No problems noted. Brother Prostate cancer Social History Housing: House Alcohol intake: current Alcohol intake frequency: 0-2 drinks per day Comment: once a week 2 drinks Patient Tobacco Use Status: Never used Tobacco e-Cigarette/Vaping Use: Never Used Second Hand Smoke Exposure: No Current occupational status: retired Cognitive needs: No Hearing needs: No Vision needs: Yes Review of Systems Const All systems reviewed & are unremarkable except as noted in HPI and below Physical Exam Vital Signs: Last Vital Signs Temp 98.1 F 10/23/24 07:32 Pulse 77 10/23/24 07:32 BP 116/60 10/23/24 07:32 Pulse Ox 97 10/23/24 07:32 Oxygen Delivery Method Room Air 10/23/24 07:32 BMI result Body Mass Index 31.0 Assessment & Plan Assessment & Plan (1) Acute viral sinusitis: Code(s): J01.90 - Acute sinusitis, unspecified; B97.89 - Other viral agents as the cause of diseases classified elsewhere Plan: Plan - VSS, pt well appearing and PE remarkable for sinus tenderness. Likely viral. - Prescribe Flonase for nasal congestion, to be used after nasal irrigation with a neti pot. - Recommend use of a neti pot with distilled water twice daily to clear nasal passages. - Prescribe a six-day taper of prednisone to manage inflammation and improve symptoms. - Suggest [id number] antihistamines like Benadryl at night to aid sleep and reduce congestion. Patient was informed and verbally consented to the use of an ambient scribe for clinic note documentation during this visit Medications: New fluticasone propionate 50 mcg/actuation administer into each nostril 1 spray intranasal Q24H 48 grams 0RF 90 days methylprednisolone PO PER PKG DIR for 6 days 21 ea 0RF Coding Level of Care Code Est Pt Level 3 (74868) Diagnoses Acute viral sinusitis J01.90; B97.89
== END 2024-10-23 07:57 | disposition home or self-care (01) ==
PROVIDERS: PCP Internal Medicine; Visit Provider Physician Assistant
DX: J01.90 Acute sinusitis, unspecified (principal); B97.89 Other viral agents as the cause of diseases classified elsewhere

== ENCOUNTER 2024-11-12 08:28 | Outpatient (AMB) | payer OTHER, MEDICARE, SELFPAY ==
--- NOTE | 2024-11-12 08:41 | A.OFFPC_ITS ---
Vital Signs 11/12/24 08:42 Height 5 ft 6 in Weight 189 lb 2 oz BMI 30.5 BP 122/78 Blood Pressure Location Lt brachial Position Sitting Pulse 72 Pulse Source Pulse Oximeter Temp 97.1 F Pulse Oximetry (%) 97 Oxygen Delivery Method Room Air Intake Visit Reasons: Sinus Infection Allergies watermelon Allergy (Severe, Verified 11/12/24 09:09) ANAPHYLAXIS bee pollen (BEE STINGS) Allergy (Unknown, Verified 11/12/24 09:09) ANAPHYLAXIS Medication List - Last Reconciled 11/12/24 by PILY Ellsworth brimonidine 0.2% 1 drp ophthalmic (eye) BID C,E,copper,zinc [id number] 250-5-1 mg (Ocuvite Adult 50 Plus) 1 cap PO DAILY dorzolamide-timolol 22.3-6.8 mg/mL 1 drp ophthalmic (eye) BID fluticasone propionate 50 mcg/actuation 1 spray intranasal Q24H 90 days lactobacillus combination no.4 (Probiotic) 3,000 mmu cells PO DAILY methylprednisolone PO PER PKG DIR for 6 days [id number] 333-1.7 mg (Airborne (ascorbate sodium)) tabs PO prednisolone acetate 1% 1 drp ophthalmic (eye) BID timolol maleate 0.5% 1 drp ophthalmic (eye) DAILY Tobacco use date assessed: 11/12/24 Fall risk assessment: No Falls in past year Last assessed Fall Risk: 11/12/24 Dental Screening Dental Screen Date: 11/12/24 Did you have a dental visit in the last 12 months?: Yes Did you have a dental problem in the last 6 months where you did not have access to dental care?: No Was dental information given to patient?: Patient has dentist HPI Sinus Infection HPI Details The patient is a 69-year-old male presenting with sinusitis. The sinus issues began around the 13 of October, with symptoms localized to the left side, including nasal discharge and headaches. Initial treatment with z-pack and prednisone provided temporary relief, but symptoms returned after cessation of medication. The patient reports a sore throat, initially severe, likely due to postnasal drip, which improved with prednisone but recurred after stopping the medication. He has experienced headaches described as sharp and localized to the left side, relieved temporarily by Motrin. He denies shortness of breath, chest pain or heart palpitation or dizziness Denies abdominal pain or change in bowel habits PFSH Medical History Colon cancer screening Uveitis Hypercholesterolemia Surgical History Hx of colonoscopy (01/07/23) History of eye surgery History of cataract surgery History of appendectomy Family History Father No problems noted. Mother No problems noted. Brother Prostate cancer Social History Housing: House Alcohol intake: current Alcohol intake frequency: 0-2 drinks per day Comment: once a week 2 drinks Patient Tobacco Use Status: Never used Tobacco Tobacco use type: Cigarette e-Cigarette/Vaping Use: Never Used Second Hand Smoke Exposure: No Current occupational status: retired Cognitive needs: No Hearing needs: No Vision needs: Yes Questionnaire PHQ-9 Over the last 2 weeks, how often have you been bothered by any of the following problems? 1. Little interest or pleasure in doing things: not at all 2. Feeling down, depressed, or hopeless: not at all 3. Trouble falling or staying asleep, or sleeping too much: not at all 4. Feeling tired or having little energy: several days 5. Poor appetite or overeating: not at all 6. Feeling bad about yourself - or that you are a failure or have let yourself or your family down: not at all 7. Trouble concentrating on things, such as reading the newspaper or watching television: not at all 8. Moving or speaking so slowly that other people could have noticed. Or the opposite - being so fidgety or restless that you have been moving around a lot more than usual: not at all 9. Thoughts that you would be better off or of hurting yourself in some way: not at all Total score: 1 Depression Screening Interpretation: Negative Depression Screening Done: Yes Source: Developed by Drs. Romel Saxena, Ginger Wilcox, Vern Webster and colleagues, with an educational john from [email or web address]. Thrive Questionnaire Date Thrive assessed: 11/12/24 I am a: Patient What is your living situation today?: I have a steady place to live Within the past 12 months, did the food you bought not last and you didn't have the money to get more?: Never true Within the past 12 months, did you worry whether your food would run out before you got money to buy more?: Never true Do you have trouble paying for medicines?: No Do you have trouble getting transportation to medical appointments?: No Do you have trouble paying your heating and electricity bill?: No Do you have trouble taking care of your child, family member or friend?: No Do you have trouble with day-to-day activities such as bathing, preparing meals, shopping, managing finances, etc.?: No Are you currently unemployed and looking for a job?: No Are you interested in more education?: No Please select the resources that you would like help with: None Currently or been in a relationship where the following occur: No concerns r eported THRIVE Score: 0 AUDIT C Alcohol Use Questionnaire (AUDIT-C) 1. How often do you have a drink containing alcohol?: 2-4 times a month 2. How many drinks containing alcohol do you have on a typical day when you are drinking?: 1 or 2 3. How often do you have six or more drinks on one occasion?: Never Total Score: 2 LONA-7 AMB Questionnaire LONA-7 Date LONA - 7 assessed: 11/12/24 Feeling nervous, anxious, or on edge: 0 = Not at all Not being able to stop or control worryin = Not at all Worrying too much about different things: 0 = Not at all Trouble relaxin = Not at all Being so restless that it is hard to sit still: 0 = Not at all Becoming easily annoyed or irritable: 0 = Not at all Feeling afraid as if something awful might happen: 0 = Not at all Total LONA-7 score (0-4 normal; 5-9 mild; 10-14 moderate; 15-21 severe): 0 Source: Developed by Drs. Romel Saxena, Ginger Wilcox, Vern Webster and colleagues, with an educational john from [email or web address]. Review of Systems Const Denies body aches, Denies chills, Denies fever(s), Reports headache(s) (on the left side of face) and Denies poor appetite Eyes Reports no additional complaints ENT Denies dysphagia, Denies dizziness, Denies otalgia, Reports facial pain, Reports headache(s) (on the left side of face), Reports nasal congestion, Reports nasal discharge (thick, yellow), Denies odynophagia, Reports post nasal drip, Reports sinus pain (left side of face), Reports sinus pressure and Reports sore throat Card Denies chest pain, Denies syncope, Denies edema, Denies irregular heart rhythm, Denies lightheadedness and Denies dyspnea Resp Denies cough and Denies dyspnea GI Denies abdominal pain, Denies constipation, Denies dysphagia, Denies diarrhea, Denies nausea, Denies odynophagia and Denies vomiting Reports no additional complaints Musc Reports no additional complaints and Denies abnormal gait Skin/Breast Reports system reviewed and no additional complaints, except as documented Neuro Denies abnormal gait, Denies dizziness, Denies syncope and Reports headache(s) (on the left side of face) Psych Reports no additional complaints Physical exam (Primary Care) Vital Signs: Last Vital Signs Temp 97.1 F 11/12/24 08:42 Pulse 72 11/12/24 08:42 BP 122/78 11/12/24 08:42 Pulse Ox 97 11/12/24 08:42 Oxygen Delivery Method Room Air 11/12/24 08:42 BMI result Body Mass Index 30.5 Tobacco/Smoking Status: Tobacco use Status Tobacco use date assessed 11/12/24 11/12/24 08:43 Patient Tobacco Use Status Never used Tobacco 11/12/24 08:42 Tobacco use type Cigarette 11/12/24 08:43 e-Cigarette/Vaping Use Never Used 11/12/24 08:42 PHQ-9: PHQ-9 Score PHQ-9: Total score 1 11/12/24 08:50 Depression Screening Interpretation: Negative Thrive Assessment: Date of Thrive Assessment Date Thrive assessed 11/12/24 11/12/24 08:50 Currently or been in a relationship where the following occur: No concerns reported Const General: cooperative, healthy appearing, comfortable and no acute distress Orientation/consciousness: patient oriented x3 HENMT Head: Yes normocephalic Ears: hearing grossly normal bilaterally General nose exam: Abnormal mucous membranes and turbinates present boggy bilateral and erythematous bilateral and Nasal discharge present purulent on the left Face and sinus: Yes Facial tenderness on exam of face and sinuses (left side of maxillary region) Throat: Yes posterior oropharynx normal Eyes General: appearance normal, both eyes and all related structures Conjunctivae: conjunctivae normal Neck Neck: Yes full ROM and Yes no lymphadenopathy Resp Effort & Inspection: normal respiratory effort Auscultation: clear to auscultation bilaterally, no crackles, no rales, no rhonchi and no wheezes Cardio Rate: regular rate Rhythm: regular rhythm GI Palpation (GI): Soft to palpation and nontender Auscultation: normal bowel sounds Skin General skin exam: no rashes or lesions noted Neuro General: patient oriented x3 Gait exam (Neuro): Normal gait present Extrem General: Yes normal to inspection, Yes full ROM and No edema Psych Affect: normal affect Attitude: cooperative Insight: Good insight present (Psych) Judgement: Good judgement present (Psych) Coding Level of Care Code Est Pt Level 3 (38507) Diagnoses Subacute maxillary sinusitis J01.00 Chronicity: subacute Rhinosinusitis J32.9 Nonintractable headache, unspecified chronicity pattern, unspecified headache type R51.9 Headache type: unspecified Headache chronicity pattern: unspecified pattern Intractability: not intractable Time Spent (min) 31 Assessment & Plan Assessment & Plan (1) Maxillary sinusitis: Code(s): J32.0 - Chronic maxillary sinusitis Category: Medical Qualifiers: Chronicity: subacute Qualified Code(s): J01.00 - Acute maxillary sinusitis, unspecified (2) Rhinosinusitis: Code(s): J32.9 - Chronic sinusitis, unspecified Category: Medical (3) Headache: Code(s): R51.9 - Headache, unspecified Category: Medical Qualifiers: Headache type: unspecified Headache chronicity pattern: unspecified pattern Intractability: not intractable Qualified Code(s): R51.9 - Headache, unspecified Plan Plan Patient was informed and verbally consented to the use of an ambient scribe for clinic note documentation during this visit. 1. Sinusitis The patient will be treated with Augmentin (amoxicillin/clavulanate) for 10 days, taken twice daily, to address the sinus infection. Prednisone will be tapered over eight days to manage inflammation and symptoms. The patient is advised to continue using Flonase and saline spray to help alleviate nasal congestion. Increase fluid hydration. The patient declined ENT referral. 2. Sore Throat The sore throat is likely secondary to postnasal drip from sinusitis and will be managed with the same treatment plan as sinusitis. 3. Headache Headaches are being managed with Motrin as needed, but caution is advised due to potential kidney effects. Medications: New prednisone see taper instructions take 4 tabs x 2 days, then take 3 tabs x 2 days, then take 2 tabs x 2 days, then take 1 tab x 2 days =20 tabs for 8 days. 10 mg PO DIRECTED 20 tabs 0RF amoxicillin-pot clavulanate 875-125 mg 1 tab PO BID 10 days 20 tabs 0RF amoxicillin-pot clavulanate 875-125 mg 1 tab PO BID 7 days 14 tabs 0RF amoxicillin-pot clavulanate 875-125 mg 1 tab PO BID 20 tabs 0RF 10 days
[2024-11-12 08:42] VITALS: BP 122/78; PULSE 72; TEMP 36.2; O2SAT 97; BMI 30.5
== END 2024-11-12 09:29 | disposition home or self-care (01) ==
LOC: HO.HMCH 08:29
PROVIDERS: PCP Internal Medicine
DX: J01.00 Acute maxillary sinusitis, unspecified (principal); R51.9 Headache, unspecified